=== PATIENT | male | born 1975 | race Caucasian/White ===

== ENCOUNTER 2022-01-14 09:59 | Outpatient (REF) | payer MEDICARE, MEDICAID, SELFPAY ==
--- NOTE | 2022-01-14 13:57 | MHC.AU.HAS ---
Hearing Aid Evaluation Date of Visit: 01/14/22 Historical Information: Description of Hearing: Mild conductive hearing loss in the right ear, mild to moderate conductive hearing loss in the left ear. Current personal amplification information, if applicable: Has previously used [employer] hearing aids. Summary: Mr. Montiel was referred for a hearing aid evaluation by ENT Dr. Hdez, who provided medical clearance for binaural amplification use. He reports that he has had PE tubes many times and has previously used hearing aids. He is interested in pursuing a new pair of hearing aids, as he finds he struggles to hear in most situations. Discussed hearing aid styles and technologies. Mr. Montiel is interested in rechargeable ROSANGELA style hearing aids. Hearing Aid Prescription: Based on the individual?s shared listening needs, communication environments, dexterity, desire for connectivity, and personal preferences, the following prescription for amplification has been made: Right ear: Medical Resident: [employer] Model: Audeo P70-R Battery Size: Rechargeable Color: P8- Black Dehydrator Tender: Size 1 M Type of Dome: Vented Left ear: Left ear prescription to be same as Right Hearing Aid above: Medical Resident: [employer] Model: Audeo P70-R Battery Size: Rechargeable Color: P8- Black Dehydrator Tender: Size 1 M Type of Dome: Vented Plan of Care: Hearing aids will be ordered. Hearing aid fitting will be scheduled when materials arrive. Primary Diagnosis: H90.0 Conductive Hearing Loss, Bilateral Signature: Provider: Clary Ponce, [facility]
== END 2022-01-14 10:00 | disposition home or self-care (01) ==
LOC: HO.HAP 09:59
PROVIDERS: Visit Provider Physician Assistant
DX: Z01.118 Encounter for examination of ears and hearing with other abnormal findings (principal); H90.0 Conductive hearing loss, bilateral
CPT/HCPCS: 92591

== ENCOUNTER 2022-01-30 13:50 | Outpatient (REF) | payer MEDICARE, MEDICAID, SELFPAY | END 2022-01-30 13:51 | disposition home or self-care (01) | LOC: HO.HAP 13:50 | PROVIDERS: Visit Provider Otolaryngology | DX: Z46.1 Encounter for fitting and adjustment of hearing aid (principal); H90.0 Conductive hearing loss, bilateral | CPT/HCPCS: V5011; V5020; V5160; V5261 ==

== ENCOUNTER 2022-02-13 13:41 | Outpatient (REF) | payer MEDICARE, MEDICAID, SELFPAY | END 2022-02-13 13:42 | disposition home or self-care (01) | LOC: HO.HAP 13:41 | PROVIDERS: Visit Provider Physician Assistant | DX: Z13.89 Encounter for screening for other disorder (principal) ==

== ENCOUNTER 2022-08-15 12:40 | Outpatient (REF) | payer MEDICARE, MEDICAID, SELFPAY | END 2022-08-15 12:41 | disposition home or self-care (01) | LOC: HO.HAP 12:40 | PROVIDERS: Visit Provider Physician Assistant | DX: Z13.89 Encounter for screening for other disorder (principal) ==